=== PATIENT | female | born 1955 | race Caucasian/White ===

== ENCOUNTER 2018-07-24 11:12 | Emergency (ER) | payer OTHER ==
[~2018-07-24] VITALS: Ht 154.9 cm; Wt 45.0 kg
[~2018-07-24 11:12] MED LIST: ASPI-556 PO; AZAT50TA35 PO; CARV12 PO; ISOS30TA6 PO; LOSA50TA64 PO; MAGN250T29 PO; PRED5 PO; TACR1 PO; TRIA0.2573 PO
[2018-07-24 13:05] LABS: BASOPHILS % (AUTO) 1.3 % (0.0-2.0); EOSINOPHILS % (AUTO) 2.2 % (1.0-6.0); HEMATOCRIT 38.3 % (36-46); HEMOGLOBIN 12.6 g/dL (12.0-16.0); LYMPHOCYTES # (AUTO) 1.3 K/uL (1.0-4.8); LYMPHOCYTES % (AUTO) 24.8 % (22.0-44.0); MEAN CORPUSCULAR HEMOGLOBIN 30.4 pg (26.0-34.0); MEAN CORPUSCULAR HGB CONC 32.8 G/dL (31.0-37.0); MEAN CORPUSCULAR VOLUME 93 fL (80-100); MONOCYTES # (AUTO) 0.3 K/uL (0.1-1.0); NEUTROPHILS # (AUTO) 3.4 K/uL (1.8-7.7); NEUTROPHILS % (AUTO) 65.7 % (40.0-70.0); PLATELET COUNT (AUTO) 172 K/uL (150-450); RED BLOOD CELL COUNT(AUTO) 4.15 MIL/uL (4.00-5.20); RED CELL DISTRIBUTION WIDTH 14.8 % (11.5-14.5)
[2018-07-24 13:15] LABS: ANION GAP 10 mmol/L (8-16); CARBON DIOXIDE 28 mmol/L (22-29); CHLORIDE 101 mmol/L (98-107); CREATININE 0.74 mg/dL (0.60-1.30); GLOMERULAR FILTR. RATE CALC > 60 mL/min (>60); GLUCOSE,RANDOM 114 mg/dL (70-110); POTASSIUM 4.1 mmol/L (3.5-5.1); SODIUM SERUM 139 mmol/L (136-145); UREA NITROGEN, BLOOD 22 mg/dL (7-18)
[2018-07-24 13:16] LABS: INR 1.1 (0.9-1.1); PROTHROMBIN TIME 11.7 SEC (9.4-11.6)
[2018-07-24 13:22] LABS: ALANINE AMINOTRANSFERASE 21 U/L (12-78); ALBUMIN 3.7 g/dL (3.4-5.0); ALKALINE PHOSPHATASE 61 U/L (46-116); ASPARTATE AMINOTRANSFERASE 24 U/L (15-37); BILIRUBIN,TOTAL 0.4 mg/dL (0.1-1.0); CREATINE KINASE, TOTAL ONLY 69 U/L (26-192); TOTAL PROTEIN, SERUM 7.3 g/dL (6.4-8.2)
[2018-07-24 13:23] LABS: B-TYPE NATRIURETIC PEPTIDE 538 pg/mL (0-100)
[2018-07-24 13:31] LABS: APPEARANCE,URINE CLEAR (CLEAR); BILIRUBIN,URINE NEGATIVE (NEGATIVE); GLUCOSE, URINE (UA) NEGATIVE (NEGATIVE); KETONES,URINE NEGATIVE (NEGATIVE); LEUKOCYTE ESTERASE ,URINE NEGATIVE (NEGATIVE); NITRATE,URINE NEGATIVE (NEGATIVE); OCCULT BLOOD,URINE NEGATIVE (NEGATIVE); PH,URINE 6.5 (5.0-8.0); PROTEIN,URINE NEGATIVE (NEGATIVE); UROBILINOGEN,URINE 0.2 mg/dL (<=1.0)
[2018-07-24] MEDS ORDERED: SODIUM CHLORIDE 0.9% 500 ML IV ONE (15:00)
[2018-07-24] MEDS ORDERED: MECLIZINE HCL 25 MG TABLET PO ONE (15:00)
[2018-07-24 16:54] VITALS: BP 150/79
== END 2018-07-24 17:33 | disposition home or self-care (01) ==
LOC: EMS 11:13
DX: R42 Dizziness and giddiness (principal); R51 Headache; E11.22 Type 2 diabetes mellitus with diabetic chronic kidney disease; I13.2 Hypertensive heart and chronic kidney disease with heart failure and with stage 5 chronic kidney disease, or end stage renal disease; I50.9 Heart failure, unspecified; N18.6 End stage renal disease; Z86.711 Personal history of pulmonary embolism; Z87.891 Personal history of nicotine dependence; Z94.0 Kidney transplant status; Z94.83 Pancreas transplant status; Z88.1 Allergy status to other antibiotic agents; Z88.6 Allergy status to analgesic agent; Z88.8 Allergy status to other drugs, medicaments and biological substances; Z79.82 Long term (current) use of aspirin; Z79.899 Other long term (current) drug therapy
CPT/HCPCS: 36415; 70450; 71045; 80053; 81003; 82550; 83880; 84484; 85025; 85610; 85730; 93005; 96360; 99284; J7040

== ENCOUNTER 2019-11-07 23:29 | Inpatient (IN) | payer OTHER ==
[~2019-11-07] VITALS: Ht 154.9 cm; Wt 42.9 kg
[~2019-11-07 23:29] MED LIST changes: -CARV12 PO; +LOSA50TA37 PO; -LOSA50TA64 PO; +METO50 PO
[2019-11-08] MEDS ORDERED: ACETAMINOPHEN 325 MG TABLET PO ONE (01:15)
[2019-11-08 01:52] LABS: BASOPHILS % (AUTO) 0.2 % (0.0-2.0); HEMATOCRIT 37.8 % (36-46); HEMOGLOBIN 12.5 g/dL (12.0-16.0); LYMPHOCYTES # (AUTO) 0.8 K/uL (1.0-4.8); LYMPHOCYTES % (AUTO) 8.7 % (22.0-44.0); MEAN CORPUSCULAR HEMOGLOBIN 29.8 pg (26.0-34.0); MEAN CORPUSCULAR VOLUME 90 fL (80-100); MONOCYTES # (AUTO) 1.2 K/uL (0.1-1.0); MONOCYTES % (AUTO) 12.9 % (2.0-9.0); NEUTROPHILS # (AUTO) 7.3 K/uL (1.8-7.7); NEUTROPHILS % (AUTO) 76.2 % (40.0-70.0); PLATELET COUNT (AUTO) 138 K/uL (150-450); RED BLOOD CELL COUNT(AUTO) 4.18 MIL/uL (4.00-5.20); RED CELL DISTRIBUTION WIDTH 14.1 % (11.5-14.5)
[2019-11-08 02:09] LABS: LACTIC ACID 1.5 mmol/L (0.4-2.0)
[2019-11-08 02:13] LABS: CALCIUM, TOTAL 8.8 mg/dL (8.8-10.5); CREATININE 1.19 mg/dL (0.60-1.30)
[2019-11-08 02:14] LABS: INFLUENZA TYPE A NEGATIVE FOR TYPE A (NEGATIVE); INFLUENZA TYPE B NEGATIVE FOR TYPE B (NEGATIVE)
[2019-11-08 02:22] LABS: ALBUMIN 3.7 g/dL (3.4-5.0); BILIRUBIN,TOTAL 0.5 mg/dL (0.1-1.0); C-REACTIVE PROTEIN QUANT 0.07 mg/dL (0.00-0.30); FREE T4 (FREE THYROXINE) 1.18 ng/dL (0.76-1.46); THYROID STIMULATING HORMONE 5.39 uIU/mL (0.36-3.74)
[2019-11-08] MEDS ORDERED: VANCOMYCIN HCL 1 GM/D5% WATER 200 ML IV ONE (03:00)
[2019-11-08] MEDS ORDERED: *CLINICAL-CEFEPIME DOSING CLINICAL ONE (03:00)
[2019-11-08] MEDS ORDERED: CEFEPIME HCL 2 GM in DEXTROSE 5%-WATER 50 ML IV ONE (03:15)
[2019-11-08] MEDS ORDERED: ONDANSETRON HCL 4 MG/2 ML VIAL IVP ONE (03:15)
[2019-11-08 03:31] LABS: APPEARANCE,URINE CLEAR (CLEAR); GLUCOSE, URINE (UA) NEGATIVE (NEGATIVE); KETONES,URINE TRACE mg/dL (NEGATIVE); LEUKOCYTE ESTERASE ,URINE TRACE (NEGATIVE); NITRATE,URINE NEGATIVE (NEGATIVE); OCCULT BLOOD,URINE NEGATIVE (NEGATIVE); PROTEIN,URINE NEGATIVE (NEGATIVE); UROBILINOGEN,URINE 0.2 mg/dL (<=1.0)
[2019-11-08 03:32] LABS: BILIRUBIN,URINE PRELIM. POSITIVE (NEGATIVE)
[2019-11-08 03:44] LABS: BACTERIA,URINE Rare /HPF (None Seen); RBC,URINE None Seen /HPF (0-2); SQUAMOUS EPITHELIAL CELL,UR Few /LPF (None Seen); WBC,URINE 0-2 /HPF (0-5); YEAST,URINE None Seen /HPF (None Seen)
[2019-11-08] MEDS ORDERED: ONDANSETRON HCL 4 MG/2 ML VIAL IVP PRN (04:30)
[2019-11-08] MEDS ORDERED: 0.9% SODIUM CHLORIDE 10 ML SYRINGE IVP PRN (04:30)
[2019-11-08] MEDS ORDERED: ACETAMINOPHEN 325 MG TABLET PO PRN ×2 (04:30→07:45)
[2019-11-08] MEDS ORDERED: SODIUM CHLORIDE 0.9% 250 ML IV ONE (05:10)
[2019-11-08 05:20] VITALS: BP 122/60
[2019-11-08] MEDS ORDERED: PNEUMOCOCCAL VACCINE POLYVALENT 0.5 ML VIAL [PPSV23] IM ONE (06:15)
[2019-11-08 07:38] LABS: GLUCOMETER DEV NAME(LOC) 5N.1; GLUCOSE,POINT OF CARE 113 MG/DL (70-110)
[2019-11-08 07:50] VITALS: BP 105/53
[2019-11-08] MEDS: METOPROLOL TARTRATE 25 MG TABLET PO SCH (10:08)
[2019-11-08] MEDS: DOCUSATE SODIUM 100 MG CAPSULE PO SCH ×2 (10:08→21:08)
[2019-11-08] MEDS: PredniSONE 5 MG TABLET PO SCH (10:08)
[2019-11-08] MEDS: HEPARIN SODIUM,PORCINE 5,000 UNITS/ML VIAL SQ SCH ×2 (10:08→16:00)
[2019-11-08] MEDS: TACROLIMUS ANHYDROUS 1 MG CAPSULE PO SCH ×2 (10:09→21:08)
[2019-11-08] MEDS: ASPIRIN 81 MG CHEWABLE TABLET PO SCH (10:09)
[2019-11-08 11:13] VITALS: BP 128/69
[2019-11-08 16:05] VITALS: BP 136/66
[2019-11-08 20:33] VITALS: BP 143/66
[2019-11-08] MEDS: LOSARTAN POTASSIUM 25 MG TABLET PO SCH (21:08)
[2019-11-09] VITALS (7 sets, daily range): BP systolic 130–152; BP diastolic 68–75
[2019-11-09] MEDS: HEPARIN SODIUM,PORCINE 5,000 UNITS/ML VIAL SQ SCH ×5 (08:00→23:41)
[2019-11-09] MEDS: ASPIRIN 81 MG CHEWABLE TABLET PO SCH (10:06)
[2019-11-09] MEDS: PredniSONE 5 MG TABLET PO SCH (10:06)
[2019-11-09] MEDS: METOPROLOL TARTRATE 25 MG TABLET PO SCH (10:06)
[2019-11-09] MEDS: DOCUSATE SODIUM 100 MG CAPSULE PO SCH ×2 (10:08→21:04)
[2019-11-09] MEDS: TACROLIMUS ANHYDROUS 1 MG CAPSULE PO SCH ×2 (10:09→21:04)
[2019-11-09 12:18] LABS: BASOPHILS % (AUTO) 0.4 % (0.0-2.0); EOSINOPHILS % (AUTO) 4.1 % (1.0-6.0); HEMATOCRIT 38.4 % (36-46); HEMOGLOBIN 12.5 g/dL (12.0-16.0); LYMPHOCYTES % (AUTO) 24.6 % (22.0-44.0); MEAN CORPUSCULAR HEMOGLOBIN 29.7 pg (26.0-34.0); MEAN CORPUSCULAR HGB CONC 32.4 G/dL (31.0-37.0); MEAN CORPUSCULAR VOLUME 92 fL (80-100); MONOCYTES # (AUTO) 0.7 K/uL (0.1-1.0); MONOCYTES % (AUTO) 9.1 % (2.0-9.0); NEUTROPHILS % (AUTO) 61.8 % (40.0-70.0); PLATELET COUNT (AUTO) 141 K/uL (150-450); RED CELL DISTRIBUTION WIDTH 14.3 % (11.5-14.5)
[2019-11-09 13:32] LABS: ALANINE AMINOTRANSFERASE 16 U/L (12-78); ALBUMIN 3.4 g/dL (3.4-5.0); ALKALINE PHOSPHATASE 59 U/L (46-116); ANION GAP 8 mmol/L (8-16); ASPARTATE AMINOTRANSFERASE 19 U/L (15-37); BILIRUBIN,TOTAL 0.3 mg/dL (0.1-1.0); CARBON DIOXIDE 26 mmol/L (22-29); CHLORIDE 105 mmol/L (98-107); CREATININE 0.81 mg/dL (0.60-1.30); GLOMERULAR FILTR. RATE CALC > 60 mL/min (>60); GLUCOSE,RANDOM 108 mg/dL (70-110); POTASSIUM 4.3 mmol/L (3.5-5.1); SODIUM SERUM 139 mmol/L (136-145); UREA NITROGEN, BLOOD 27 mg/dL (7-18)
[2019-11-09 14:56] LABS: CALCIUM, TOTAL 8.6 mg/dL (8.8-10.5)
[2019-11-09] MEDS: ISOSORBIDE MONONITRATE 30 MG ER TABLET PO SCH (15:43)
[2019-11-09] MEDS: LOSARTAN POTASSIUM 25 MG TABLET PO SCH (21:04)
[2019-11-10 04:35] VITALS: BP 136/70
[2019-11-10 07:42] VITALS: BP 165/86
[2019-11-10] MEDS: HEPARIN SODIUM,PORCINE 5,000 UNITS/ML VIAL SQ SCH ×3 (08:00→18:02)
[2019-11-10 08:18] LABS: ANION GAP 9 mmol/L (8-16); CALCIUM, TOTAL 8.7 mg/dL (8.8-10.5); CARBON DIOXIDE 24 mmol/L (22-29); CHLORIDE 106 mmol/L (98-107); CREATININE 0.75 mg/dL (0.60-1.30); GLOMERULAR FILTR. RATE CALC > 60 mL/min (>60); GLUCOSE,RANDOM 82 mg/dL (70-110); PHOSPHORUS 2.9 mg/dL (2.5-4.9); POTASSIUM 3.7 mmol/L (3.5-5.1); SODIUM SERUM 139 mmol/L (136-145); UREA NITROGEN, BLOOD 22 mg/dL (7-18)
[2019-11-10] MEDS: METOPROLOL TARTRATE 25 MG TABLET PO SCH ×2 (08:25→20:18)
[2019-11-10] MEDS: ISOSORBIDE MONONITRATE 30 MG ER TABLET PO SCH (08:25)
[2019-11-10] MEDS: ASPIRIN 81 MG CHEWABLE TABLET PO SCH (08:26)
[2019-11-10] MEDS: DOCUSATE SODIUM 100 MG CAPSULE PO SCH ×2 (08:26→20:19)
[2019-11-10] MEDS: TACROLIMUS ANHYDROUS 1 MG CAPSULE PO SCH ×2 (08:35→20:19)
[2019-11-10] MEDS: PredniSONE 5 MG TABLET PO SCH (08:35)
[2019-11-10] MEDS ORDERED: MAGNESIUM SULFATE 2 GM/WATER 50 ML IV PRN (09:30)
[2019-11-10] MEDS ORDERED: MAGNESIUM SULFATE 4 GM/WATER 100 ML IV PRN (09:30)
[2019-11-10 10:12] LABS: ALBUMIN 3.5 g/dL (3.4-5.0)
[2019-11-10 11:36] VITALS: BP 126/69
[2019-11-10] MEDS: MAGNESIUM OXIDE 400 MG TABLET PO PRN ×2 (12:47→18:01)
[2019-11-10 15:51] VITALS: BP 136/62
[2019-11-10] MEDS: LOSARTAN POTASSIUM 25 MG TABLET PO SCH (20:19)
[2019-11-10 20:45] VITALS: BP 149/82
[2019-11-11] MEDS: MAGNESIUM OXIDE 400 MG TABLET PO PRN
[2019-11-11 00:21] VITALS: BP 145/77
[2019-11-11 05:28] VITALS: BP 126/81
[2019-11-11 08:35] VITALS: BP 152/75
[2019-11-11] MEDS: ASPIRIN 81 MG CHEWABLE TABLET PO SCH (09:20)
[2019-11-11] MEDS: HEPARIN SODIUM,PORCINE 5,000 UNITS/ML VIAL SQ SCH ×2 (09:20)
[2019-11-11] MEDS: METOPROLOL TARTRATE 25 MG TABLET PO SCH (09:21)
[2019-11-11] MEDS: ISOSORBIDE MONONITRATE 30 MG ER TABLET PO SCH (09:21)
[2019-11-11] MEDS: PredniSONE 5 MG TABLET PO SCH (09:21)
[2019-11-11] MEDS: TACROLIMUS ANHYDROUS 1 MG CAPSULE PO SCH (09:21)
[2019-11-11] MEDS: DOCUSATE SODIUM 100 MG CAPSULE PO SCH (09:21)
[2019-11-11 12:00] VITALS: BP 145/77
== END 2019-11-11 13:50 | disposition home or self-care (01) | DRG 204 ==
LOC: EMS 23:29 → 5N 11-08 04:36
PROVIDERS: ADMIT Internal Medicine; ATTEND Internal Medicine
DX: R05 Cough (principal); N18.6 End stage renal disease; I12.0 Hypertensive chronic kidney disease with stage 5 chronic kidney disease or end stage renal disease; I42.2 Other hypertrophic cardiomyopathy; Z94.0 Kidney transplant status; D89.9 Disorder involving the immune mechanism, unspecified; Z20.828 Contact with and (suspected) exposure to other viral communicable diseases; D69.6 Thrombocytopenia, unspecified; E10.22 Type 1 diabetes mellitus with diabetic chronic kidney disease; E83.42 Hypomagnesemia; Z95.810 Presence of automatic (implantable) cardiac defibrillator; Z82.49 Family history of ischemic heart disease and other diseases of the circulatory system; Z43.9 Encounter for attention to unspecified artificial opening; Z88.1 Allergy status to other antibiotic agents; Z88.8 Allergy status to other drugs, medicaments and biological substances; Z79.4 Long term (current) use of insulin; Z79.899 Other long term (current) drug therapy; Z83.3 Family history of diabetes mellitus; Z86.711 Personal history of pulmonary embolism
CPT/HCPCS: 82728; 83605; 83615; 83735; 84100; 84439; 84443; 85379; 86140; 87040; 87635; 87804; 93005; 93306; J0692; J1644; J2405; J3370; J7050; J7060; J7507

== ENCOUNTER 2022-06-10 06:16 | Emergency (ER) | payer MEDICARE, MEDICAID ==
[~2022-06-10] VITALS: Ht 154.9 cm; Wt 42.0 kg
[~2022-06-10 06:16] MED LIST changes: +ALEN35TA53 PO; +AZAT50TA21 PO; -AZAT50TA35 PO; -ISOS30TA6 PO; +ISOS30TA92 PO; +LOSA-382 PO; -LOSA50TA37 PO; +METO25 PO; -METO50 PO; +PRAV20TA4 PO; +PRED-549 PO; -PRED5 PO; -TACR1 PO; +TACR1CAP12 PO
[2022-06-10] MEDS ORDERED: BACITRACIN 0.9 GM PACKET OINTMENT TP ONE (06:45)
[2022-06-10] MEDS ORDERED: LIDOCAINE 1%/EPI 1:200,000/PF 30 ML VIAL SQ ONE (06:45)
[2022-06-10] MEDS ORDERED: PERTUSS(ACELL),DIPH,TET VAC/PF 0.5 ML SYRINGE IM. ONE (06:45)
[2022-06-10 07:20] VITALS: BP 156/90
[2022-06-10] MEDS ORDERED: FLUORESCEIN SODIUM 1 MG STRIP OS ONE (08:30)
[2022-06-10] MEDS ORDERED: PROPARACAINE HCL 0.5% 15 ML OPHTHALMIC SOLUTION OS ONE (08:30)
== END 2022-06-10 09:37 | disposition home or self-care (01) ==
LOC: EMS 06:16
DX: S01.112A Laceration without foreign body of left eyelid and periocular area, initial encounter (principal); E11.9 Type 2 diabetes mellitus without complications; I42.2 Other hypertrophic cardiomyopathy; H54.8 Legal blindness, as defined in USA; I10 Essential (primary) hypertension; Z88.1 Allergy status to other antibiotic agents; Z88.5 Allergy status to narcotic agent; Z88.8 Allergy status to other drugs, medicaments and biological substances; W06.XXXA Fall from bed, initial encounter; Y93.89 Activity, other specified; Y92.89 Other specified places as the place of occurrence of the external cause; Y99.8 Other external cause status
CPT/HCPCS: 99284; 70450; 73562; 70486; 72125; 90715; 90471; 12013; J3490

== ENCOUNTER 2022-06-17 10:50 | Emergency (ER) | payer MEDICARE, MEDICAID ==
[~2022-06-17] VITALS: Ht 165.1 cm; Wt 54.5 kg
[2022-06-17] MEDS ORDERED: LOSA-382 PO (11:14)
[2022-06-17] MEDS ORDERED: TACR1CAP12 PO (11:14)
[2022-06-17] MEDS ORDERED: TACR0.5C21 PO (11:14)
[2022-06-17] MEDS ORDERED: METO50 PO (11:14)
[2022-06-17 11:25] VITALS: BP 147/73
== END 2022-06-17 12:11 | disposition home or self-care (01) ==
LOC: EMS 11:12
DX: S01.112D Laceration without foreign body of left eyelid and periocular area, subsequent encounter (principal); E11.9 Type 2 diabetes mellitus without complications; I10 Essential (primary) hypertension; X58.XXXD Exposure to other specified factors, subsequent encounter; Z86.19 Personal history of other infectious and parasitic diseases; Z88.5 Allergy status to narcotic agent
CPT/HCPCS: 82962; 99281